=== PATIENT | female | born 1980 | race Caucasian/White ===

== ENCOUNTER 2022-01-30 12:02 | Emergency (ER) | payer BC ==
[2022-01-30] MEDS ORDERED: predniSONE 20 MG TAB ONE (12:30)
[2022-01-30] MEDS ORDERED: Sterile Water 100 ML ONE (12:31)
== END 2022-01-30 13:12 | disposition home or self-care (01) ==
LOC: BURERS 12:02
DX: J45.901 Unspecified asthma with (acute) exacerbation (principal)
CPT/HCPCS: J7512; J7620